=== PATIENT | male | born 1990 | race American Indian/Alaskan Native ===

== ENCOUNTER 2017-05-29 11:54 | Emergency (ER) | payer OTHER ==
[2017-05-29 11:59] VITALS: BP 134/82
[2017-05-29] MEDS ORDERED: FUL-GLO OP ONE ×3 (12:02→15:47)
[2017-05-29] MEDS ORDERED: BSS OU ONE ×2 (12:02→15:43)
[2017-05-29] MEDS ORDERED: TETRACAINE 0.5% OU ONE ×2 (12:02→15:43)
[2017-05-29] MEDS ORDERED: TOBRADEX OU ONE ×2 (13:00→16:00)
[2017-05-29] MEDS ORDERED: TETRACAINE 0.5% ONE ×2 (15:47→15:48)
--- NOTE | 2017-05-29 15:47 | Emergency Department Report ---
ED Eye Problem HPI - General Chief complaint: Eye Problems Stated complaint: RIGHT EYE ITCHY/SORE/BLURRED VISION Time Seen by Provider: 05/29/17 15:29 Source: patient Mode of arrival: Ambulatory Limitations: No Limitations - History of Present Illness chief complaint: eye redness -: Sudden, days(s) Onset Description: sudden Location: both eyes Place: other If Injury: other (LEFT CONTACT IN TOO LONG) Eye Symptoms: burning, redness Severity: mild Consistency: constant Associated Symptoms: none. denies: headache, neck pain, nausea/vomiting, cough , rhinorrhea, fever, shortness of breath Treatments Prior to Arrival: none - Related Data Allergies Allergy/AdvReac Type Severity Reaction Status Date / Time No Known Allergies Allergy Unverified 05/29/17 11:56 ED Review of Systems ROS: Stated complaint: RIGHT EYE ITCHY/SORE/BLURRED VISION Other details as noted in HPI Comment: All other systems reviewed and negative Eyes: other (EYE RED AND IRRITATED B FROM LEAVING CONTACTS IN TOO LONG) ED Past Medical Hx - Past Medical History Hx Diabetes: Yes Hx Psychiatric Treatment: Yes (depression) - Surgical History Past Surgical History?: No - Social History Smoking Status: Never Smoker Substance Use Type: None ED Physical Exam - General Limitations: No Limitations General appearance: alert - Head Head exam: Present: atraumatic - Eye Eye exam: Present: PERRL, EOMI - ENT ENT exam: Present: mucous membranes moist - Neck Neck exam: Present: normal inspection - Respiratory Respiratory exam: Present: normal lung sounds bilaterally - Cardiovascular Cardiovascular Exam: Present: regular rate - GI/Abdominal GI/Abdominal exam: Present: soft - Extremities Exam Extremities exam: Present: normal inspection - Back Exam Back exam: Present: normal inspection - Neurological Exam Neurological exam: Present: alert, oriented X3 - Psychiatric Psychiatric exam: Present: normal affect, normal mood - Skin Skin exam: Present: warm, dry, intact ED Course Vital Signs 05/29/17 11:56 Temperature 98.2 F Pulse Rate 84 Respiratory 20 Rate Blood Pressure 134/82 O2 Sat by Pulse 98 Oximetry - Reevaluation(s) Reevaluation #1: 05/29/17 16:11 TO ER FROM [facility] WHERE HE WAS 1013 THEY LEFT HIS CONTACTS IN AND HE HAS NO SUPPLIES THEY REMOVED CONTACTS TODAY AND EYES RED SO THEY SENT HIM HERE FLUOR. STAIN W NO UPTAKE. NO ABRASION. NO ULCERATION. 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 DC W DC POC ED Medical Decision Making - Medical Decision Making SEE NOTE - Differential Diagnosis RO ABRASION; CONTACTS Critical care attestation.: If time is entered above; I have spent that time in minutes in the direct care of this critically ill patient, excluding procedure time. ED Disposition Clinical Impression: Conjunctiva disorder Disposition: DC- TO HOME OR SELFCARE Is pt being admited?: No Does the pt Need Aspirin: No Condition: Stable Instructions: Corneal Abrasion (ED) Additional Instructions: EYE DROPS INSTRUCTED EVERY 4 HOURS- [facility] FROM [facility] DO NOT LEAVE YOU CONTACTS IN TOO LONG USE THE TEARS I GAVE YOU TO HYDRATE THE EYES Referrals: PRIMARY CARE,MD [Primary Care Provider] - 3-5 Days LIEN YORK MD [Staff Physician] - 3-5 Days Time of Disposition: 15:47
== END 2017-05-29 16:22 | disposition home or self-care (01) ==
LOC: ED 11:54 → EDSEX 11:54 → ED 16:22
DX: H11.9 Unspecified disorder of conjunctiva (principal); E11.9 Type 2 diabetes mellitus without complications; F32.9 Major depressive disorder, single episode, unspecified
CPT/HCPCS: 99284